=== PATIENT | female | born 1930 | race Asian ===

== ENCOUNTER 2018-09-06 17:18 | Inpatient (IN) | payer OTHER, MEDICARE ==
[~2018-09-06] VITALS: Ht 157.5 cm; Wt 34.0 kg
[2018-09-06 17:30] VITALS: BP_SYST 155
[2018-09-06] MEDS ORDERED: NACL 0.9% 1,000 ML IV ONE (18:15)
[2018-09-06 18:32] LABS: HEMOGLOBIN 11.8 g/dL (12.0-16.0); RED BLOOD CELL COUNT(AUTO) 3.59 MIL/uL (4.2-6.2); WHITE BLOOD COUNT (AUTO) 4.9 K/uL (4.8-10.8)
[2018-09-06 18:33] LABS: BASOPHILS % (AUTO) 0.6 % (0.0-2.0); EOSINOPHILS % (AUTO) 2.2 % (0.0-4.0); HEMATOCRIT 35.7 % (36-48); LYMPHOCYTES % (AUTO) 18.8 % (20.5-51.5); MEAN CORPUSCULAR HEMOGLOBIN 33 pg (27-31); MEAN CORPUSCULAR HGB CONC 33 % (32-36); MEAN CORPUSCULAR VOLUME 99 fL (79.0-98.0); MONOCYTES % (AUTO) 9.4 % (1.7-9.3); PLATELET COUNT (AUTO) 179 K/uL (130-430); RED CELL DISTRIBUTION WIDTH 13.6 % (9.0-15.0)
[2018-09-06 18:34] LABS: EOSINOPHILS # (AUTO) 0.1 K/uL (0.0-0.4); LYMPHOCYTES # (AUTO) 0.9 K/uL (1.0-5.5); MONOCYTES # (AUTO) 0.5 K/uL (0.0-1.0); NEUTROPHILS # (AUTO) 3.4 K/uL (1.8-7.7)
[2018-09-06 18:37] LABS: ANION GAP 4 (5-15); CALCIUM 8.6 mg/dL (8.4-11.0); CHLORIDE 99 mmol/L (98-107); GLUCOSE 216 mg/dL (70-99); SODIUM SERUM 132 mmol/L (136-145); UREA NITROGEN, BLOOD 21 mg/dL (8-21)
[2018-09-06 18:42] LABS: ALANINE AMINOTRANSFERASE 16 U/L (12-78); ALBUMIN 3.4 g/dL (3.4-4.8); ASPARTATE AMINOTRANSFERASE 21 U/L (10-37); TOTAL BILIRUBIN 0.5 mg/dL (0.0-1.0)
[2018-09-06 19:07] LABS: CKMB RELATIVE INDEX 1.1 (0.0-2.9); CREATINE KINASE MB 2.4 ng/mL (0-3.6)
[2018-09-06] MEDS ORDERED: LORA0.5T PO (19:49)
[2018-09-06] MEDS ORDERED: GABA-529 PO (19:49)
[2018-09-06] MEDS ORDERED: GLUXR500 PO (19:49)
[2018-09-06] MEDS ORDERED: ASPI-1155 PO (19:49)
[2018-09-06] MEDS ORDERED: LOSA25TA3 PO (19:49)
[2018-09-06] MEDS ORDERED: DULO20CA18 PO (19:49)
[2018-09-06 20:42] VITALS: BP_SYST 196
[2018-09-06] MEDS ORDERED: ONDANSETRON HCL 4 MG/2 ML VIAL IVP PRN (20:45)
[2018-09-06] MEDS ORDERED: DEXTROSE 50% JECT 50 ML DISP.SYRIN IVP PRN (20:45)
[2018-09-06] MEDS ORDERED: POTASSIUM CHLORIDE 20 MEQ TAB.PRT.SR PO PRN (20:45)
[2018-09-06] MEDS ORDERED: LORazepam 2 MG/ML VIAL IVP PRN (20:45)
[2018-09-06] MEDS ORDERED: MORPHINE 4 MG/ML INJ. SYRINGE IVP PRN ×2 (20:45)
[2018-09-06] MEDS ORDERED: ACETAMINOPHEN 325 MG TABLET PO PRN (20:45)
[2018-09-06] MEDS ORDERED: MAGNESIUM SULFATE 50 ML IV PRN (20:45)
[2018-09-06] MEDS ORDERED: MUPIROCIN 2% TOPICAL OINTMENT 22 GM NS PRN (20:45)
[2018-09-06] MEDS: GABAPENTIN 100 MG CAPSULE PO SCH (21:39)
[2018-09-06] MEDS: NACL 0.9% 1,000 ML IV SCH (21:39)
[2018-09-06] MEDS: HEPARIN SODIUM,PORCINE 5000 UNITS/ML VIAL SUBCUT SCH (21:42)
[2018-09-06] MEDS ORDERED: LISINOPRIL 20 MG TABLET PO SCH (22:00)
[2018-09-06 22:24] LABS: BILIRUBIN,URINE NEGATIVE (NEGATIVE); CLARITY/URINE CLEAR (CLEAR); COLOR,URINE YELLOW (YELLOW); GLUCOSE,URINE 1+ (NEGATIVE); KETONES,URINE NEGATIVE (NEGATIVE); LEUKOCYTE ESTERASE ,URINE NEGATIVE (NEGATIVE); NITRITE, URINE NEGATIVE (NEGATIVE); PROTEIN URINE NEGATIVE (NEGATIVE); UROBILINOGEN,URINE 0.2 (0.2-1.0)
[2018-09-06 22:27] LABS: BLOOD, URINE TRACE (NEGATIVE)
[2018-09-06 22:36] LABS: BACTERIA,URINE RARE /HPF (None Seen); WBC,URINE 0-3 /HPF (0-3)
[2018-09-07 00:04] VITALS: BP_SYST 147
[2018-09-07 07:46] LABS: ANION GAP 8 (5-15); CALCIUM 8.4 mg/dL (8.4-11.0); CHLORIDE 104 mmol/L (98-107); GLUCOSE 93 mg/dL (70-99); POTASSIUM 3.6 mmol/L (3.5-5.1); SODIUM SERUM 139 mmol/L (136-145); UREA NITROGEN, BLOOD 12 mg/dL (8-21)
[2018-09-07 08:00] VITALS: BP_SYST 137
[2018-09-07 08:28] LABS: HEMATOCRIT 35.8 % (36-48); MEAN CORPUSCULAR HEMOGLOBIN 33 pg (27-31); MEAN CORPUSCULAR HGB CONC 33 % (32-36); MEAN CORPUSCULAR VOLUME 99 fL (79.0-98.0); NEUTROPHILS % (AUTO) 65.9 % (40.0-70.0); PLATELET COUNT (AUTO) 176 K/uL (130-430); RED BLOOD CELL COUNT(AUTO) 3.63 MIL/uL (4.2-6.2); RED CELL DISTRIBUTION WIDTH 13.3 % (9.0-15.0); WHITE BLOOD COUNT (AUTO) 4.9 K/uL (4.8-10.8)
[2018-09-07 08:29] LABS: BASOPHILS % (AUTO) 0.6 % (0.0-2.0); EOSINOPHILS # (AUTO) 0.1 K/uL (0.0-0.4); LYMPHOCYTES # (AUTO) 1.1 K/uL (1.0-5.5); LYMPHOCYTES % (AUTO) 23.1 % (20.5-51.5); MONOCYTES # (AUTO) 0.4 K/uL (0.0-1.0); MONOCYTES % (AUTO) 7.4 % (1.7-9.3); NEUTROPHILS # (AUTO) 3.2 K/uL (1.8-7.7)
[2018-09-07] MEDS: ASPIRIN 81 MG TAB.CHEW PO SCH (08:56)
[2018-09-07] MEDS: LOSARTAN POTASSIUM 25 MG TABLET PO SCH (08:56)
[2018-09-07] MEDS: HEPARIN SODIUM,PORCINE 5000 UNITS/ML VIAL SUBCUT SCH ×2 (08:57→21:32)
[2018-09-07] MEDS: LISINOPRIL 20 MG TABLET PO SCH ×2 (08:57→21:23)
[2018-09-07] MEDS: NACL 0.9% 1,000 ML IV SCH ×2 (10:18→21:26)
[2018-09-07 12:02] VITALS: BP_SYST 125
[2018-09-07 16:13] VITALS: BP_SYST 145
[2018-09-07 21:10] VITALS: BP_SYST 159
[2018-09-07] MEDS: GABAPENTIN 100 MG CAPSULE PO SCH (21:23)
[2018-09-07] MEDS: ZOLPIDEM TARTRATE 5 MG TABLET PO PRN (21:23)
[2018-09-07] MEDS: INSULIN LISPRO SLIDING SCALE 100 UNITS/ML VIAL (humaLOG) SUBCUT PRN (21:31)
[2018-09-08 02:18] VITALS: BP_SYST 159
[2018-09-08] MEDS: INSULIN LISPRO SLIDING SCALE 100 UNITS/ML VIAL (humaLOG) SUBCUT PRN ×2 (06:10→17:38)
[2018-09-08 07:12] LABS: ANION GAP 3 (5-15); CALCIUM 8.2 mg/dL (8.4-11.0); CHLORIDE 103 mmol/L (98-107); CREATININE 0.44 mg/dL (0.55-1.30); GLUCOSE 86 mg/dL (70-99); POTASSIUM 3.6 mmol/L (3.5-5.1); SODIUM SERUM 134 mmol/L (136-145); UREA NITROGEN, BLOOD 13 mg/dL (8-21)
[2018-09-08 07:23] LABS: HEMOGLOBIN 10.9 g/dL (12.0-16.0); MEAN CORPUSCULAR VOLUME 99 fL (79.0-98.0); RED BLOOD CELL COUNT(AUTO) 3.33 MIL/uL (4.2-6.2); WHITE BLOOD COUNT (AUTO) 4.3 K/uL (4.8-10.8)
[2018-09-08 07:24] LABS: BASOPHILS % (AUTO) 0.5 % (0.0-2.0); EOSINOPHILS # (AUTO) 0.2 K/uL (0.0-0.4); LYMPHOCYTES # (AUTO) 1.1 K/uL (1.0-5.5); LYMPHOCYTES % (AUTO) 24.6 % (20.5-51.5); MEAN CORPUSCULAR HEMOGLOBIN 33 pg (27-31); MEAN CORPUSCULAR HGB CONC 33 % (32-36); MONOCYTES # (AUTO) 0.5 K/uL (0.0-1.0); MONOCYTES % (AUTO) 10.8 % (1.7-9.3); NEUTROPHILS # (AUTO) 2.6 K/uL (1.8-7.7); NEUTROPHILS % (AUTO) 60.1 % (40.0-70.0); PLATELET COUNT (AUTO) 166 K/uL (130-430); RED CELL DISTRIBUTION WIDTH 13.4 % (9.0-15.0)
[2018-09-08 07:51] VITALS: BP_SYST 161
[2018-09-08] MEDS: ASPIRIN 81 MG TAB.CHEW PO SCH (08:18)
[2018-09-08] MEDS: LISINOPRIL 20 MG TABLET PO SCH ×2 (08:18→20:37)
[2018-09-08] MEDS: LOSARTAN POTASSIUM 25 MG TABLET PO SCH (08:18)
[2018-09-08] MEDS: HEPARIN SODIUM,PORCINE 5000 UNITS/ML VIAL SUBCUT SCH ×2 (08:21→20:38)
[2018-09-08] MEDS ORDERED: cloNIDine HCL 0.1 MG TABLET PO PRN (09:15)
[2018-09-08] MEDS: HYDROcodone/ACETAMIN 5-325 MG TAB (NORCO/ VICODIN) PO SCH ×2 (10:45→20:36)
[2018-09-08 11:31] VITALS: BP_SYST 140
[2018-09-08] MEDS: NACL 0.9% 1,000 ML IV SCH (11:53)
[2018-09-08] MEDS: DOCUSATE SODIUM 100 MG CAPSULE PO PRN (14:02)
[2018-09-08 15:37] VITALS: BP_SYST 145
[2018-09-08 19:49] VITALS: BP_SYST 125
[2018-09-08] MEDS: GABAPENTIN 100 MG CAPSULE PO SCH (20:35)
[2018-09-08] MEDS: ZOLPIDEM TARTRATE 5 MG TABLET PO PRN (20:36)
[2018-09-08 23:48] VITALS: BP_SYST 150
[2018-09-09] MEDS: NACL 0.9% 1,000 ML IV SCH (06:15)
[2018-09-09 07:47] LABS: ANION GAP 10 (5-15); CALCIUM 8.5 mg/dL (8.4-11.0); CHLORIDE 104 mmol/L (98-107); CREATININE 0.56 mg/dL (0.55-1.30); GLUCOSE 81 mg/dL (70-99); POTASSIUM 3.5 mmol/L (3.5-5.1); SODIUM SERUM 141 mmol/L (136-145); UREA NITROGEN, BLOOD 14 mg/dL (8-21)
[2018-09-09 08:00] VITALS: BP_SYST 160
[2018-09-09] MEDS: LISINOPRIL 20 MG TABLET PO SCH (08:54)
[2018-09-09] MEDS: ASPIRIN 81 MG TAB.CHEW PO SCH (08:54)
[2018-09-09] MEDS: HYDROcodone/ACETAMIN 5-325 MG TAB (NORCO/ VICODIN) PO SCH (08:54)
[2018-09-09] MEDS: DOCUSATE SODIUM 100 MG CAPSULE PO PRN (08:54)
[2018-09-09] MEDS: HEPARIN SODIUM,PORCINE 5000 UNITS/ML VIAL SUBCUT SCH (08:55)
[2018-09-09 08:56] LABS: HEMATOCRIT 34.6 % (36-48); HEMOGLOBIN 11.4 g/dL (12.0-16.0); MEAN CORPUSCULAR HEMOGLOBIN 33 pg (27-31); MEAN CORPUSCULAR HGB CONC 33 % (32-36); MEAN CORPUSCULAR VOLUME 99 fL (79.0-98.0); PLATELET COUNT (AUTO) 193 K/uL (130-430); RED BLOOD CELL COUNT(AUTO) 3.48 MIL/uL (4.2-6.2); RED CELL DISTRIBUTION WIDTH 13.1 % (9.0-15.0); WHITE BLOOD COUNT (AUTO) 3.8 K/uL (4.8-10.8)
[2018-09-09 08:57] LABS: BASOPHILS % (AUTO) 0.9 % (0.0-2.0); EOSINOPHILS # (AUTO) 0.1 K/uL (0.0-0.4); EOSINOPHILS % (AUTO) 3.7 % (0.0-4.0); LYMPHOCYTES # (AUTO) 1.3 K/uL (1.0-5.5); LYMPHOCYTES % (AUTO) 33.7 % (20.5-51.5); MONOCYTES # (AUTO) 0.4 K/uL (0.0-1.0); MONOCYTES % (AUTO) 9.2 % (1.7-9.3)
[2018-09-09] MEDS ORDERED: LOSARTAN POTASSIUM 50 MG TABLET (COZAAR) PO SCH ×2 (09:00→21:00)
[2018-09-09 11:50] VITALS: BP_SYST 132
[2018-09-09 13:11] LABS: NEUTROPHILS % (AUTO) 52.5 % (40.0-70.0)
[2018-09-09 15:34] VITALS: BP_SYST 143
[2018-09-09 15:54] VITALS: BP_SYST 143
== END 2018-09-09 17:00 | DRG 640 ==
LOC: SED 17:18 → SMU 19:46
PROVIDERS: ADMIT General Practice; ATTEND General Practice
DX: E87.1 Hypo-osmolality and hyponatremia (principal); G93.41 Metabolic encephalopathy; I69.354 Hemiplegia and hemiparesis following cerebral infarction affecting left non-dominant side; E11.9 Type 2 diabetes mellitus without complications; I10 Essential (primary) hypertension; E11.65 Type 2 diabetes mellitus with hyperglycemia; M47.815 Spondylosis without myelopathy or radiculopathy, thoracolumbar region; M47.816 Spondylosis without myelopathy or radiculopathy, lumbar region; S09.90XA Unspecified injury of head, initial encounter; E86.0 Dehydration; R26.9 Unspecified abnormalities of gait and mobility; W01.198A Fall on same level from slipping, tripping and stumbling with subsequent striking against other object, initial encounter; Z91.81 History of falling; Y93.89 Activity, other specified; Y92.89 Other specified places as the place of occurrence of the external cause; Y99.8 Other external cause status
CPT/HCPCS: 36415; 70450-TC; 71045; 72072-TC; 72100-TC; 72170-TC; 80048; 80053; 81000-TC; 82550-TC; 82553-TC; 82962; 83036; 83735-TC; 84484; 85025; 93005; 96360; 99285; J1644; J2060; J2405; J7030